=== PATIENT | male | born 1985 | race Caucasian/White ===

== ENCOUNTER 2018-11-14 19:07 | Emergency (ER) | payer OTHER ==
[2018-11-14] MEDS ORDERED: Sodium Chloride 0.9% 1,000 ML IV SCH (19:30)
[2018-11-14] MEDS ORDERED: Iopamidol 755 Mg/ML 200 ML Bottle IV ONE ×3 (19:31→20:00)
--- NOTE | 2018-11-14 19:54 | EDM.PDOC ---
ED HPI GENERAL MEDICAL PROBLEM - General Chief Complaint: Chest Pain Stated Complaint: RIB INJURY Time Seen by Provider: 11/14/18 19:16 Source of Information: Reports: Patient, Other (His boss) History Limitations: Reports: No Limitations - History of Present Illness INITIAL COMMENTS - FREE TEXT/NARRATIVE: This is a 33-year-old male. 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 Zamorano on the pipe and struck him in his left ribs. He complains of severe rib pain the pain that radiates into his anterior chest and into his back around those ribs. He also complains of some mild left flank pain. He's had no nausea and vomiting. It hurts to breathe. He thinks the breath was knocked out of him when he got hit and he thinks he might of had some loss of consciousness for a few seconds but he did not hit his head. He denies any extremity injury. Upon arrival to the ER his pulse ox was 98% on room air. Left Chest Pain Score (Numeric/FACES): 7 - Related Data Allergies Allergy/AdvReac Type Severity Reaction Status Date / Time No Known Allergies Allergy Verified 11/14/18 19:19 Home Meds: Home Meds Labetalol [Normodyne] 100 mg PO DAILY 11/14/18 [History] Past Medical History Cardiovascular History: Reports: Hypertension Social & Family History - Tobacco Use Smoking Status *Q: Never Smoker - Caffeine Use Caffeine Use: Reports: None - Recreational Drug Use Recreational Drug Use: No ED ROS GENERAL - Review of Systems Review Of Systems: See Below Constitutional: Denies: Fever, Chills HEENT: Reports: No Symptoms Respiratory: Reports: Shortness of Breath, Other (Left rib pain) Cardiovascular: Reports: Other (Anterior chest pain related to his ribs) Endocrine: Reports: No Symptoms GI/Abdominal: Reports: Abdominal Pain, Other (Left upper quadrant) : Reports: No Symptoms Musculoskeletal: Reports: Back Pain, Other (He denies any leg pain or arm pain, the back pain seems to be related to his left ribs with the pain radiating around to his back) Skin: Reports: Other (Bruising over the left ribs) Psychiatric: Reports: No Symptoms Hematologic/Lymphatic: Reports: No Symptoms ED EXAM, GENERAL - Physical Exam Exam: See Below Exam Limited By: No Limitations General Appearance: Alert, WD/WN, Mild Distress Eye Exam: Bilateral Eye: Normal Inspection Ears: Normal External Exam Nose: Normal Inspection Throat/Mouth: Normal Lips, Normal Voice, No Airway Compromise Head: Atraumatic, Normocephalic Neck: Supple, Other (He denies any cervical tenderness) Respiratory/Chest: Other (He has equal breath sounds on the left and the right, there is bruising over the ribs 7, 8, 9 and 10 laterally, with marked tenderness on palpation so I cannot determine crepitus. Breathing deep he splints on the left side, breathing deep seems to cause pain into his left anterior chest and left back) Cardiovascular: Regular Rate, Rhythm, No Murmur GI/Abdominal: Other (Bowel sounds are decreased, he does have left flank tenderness on palpation of the left upper quadrant is not significantly tender, the right upper quadrant and lower abdomen is nontender on palpation, there is no bruising in the left upper abdomen but just in the ribs and the left flank area, bowel sounds are decreased) Back Exam: Other (He seems to move his back fairly well until he breathes deep and immediate sharp pain in his lower thoracic area) Extremities: Normal Inspection, Normal Range of Motion Neurological: Alert, Oriented Psychiatric: Anxious Skin Exam: Warm, Dry Course - Vital Signs Last Recorded V/S: Last Vital Signs Temp 97.6 F 11/14/18 19:16 Pulse 89 11/14/18 19:16 Resp 16 11/14/18 19:16 BP 142/96 H 11/14/18 19:16 Pulse Ox 98 11/14/18 19:16 - Orders/Labs/Meds Orders: Active Orders 24 hr Category Date Time Status Ribs 2V w Chest Lt [CR] Stat Exams 11/14/18 19:24 Taken Iopamidol [Isovue-370 (76%)] Med 11/14/18 19:31 Once 100 ml IV ONETIME ONE Iopamidol [Isovue-370 (76%)] Med 11/14/18 19:52 Once 100 ml IV ONETIME ONE Iopamidol [Isovue-370 (76%)] Med 11/14/18 20:00 Once 200 ml IV ONETIME ONE Sodium Chloride 0.9% [Normal Saline] 1,000 ml Med 11/14/18 19:30 Active IV ASDIRECTED Sodium Chloride 0.9% [Saline Flush] Med 11/14/18 19:31 Active 10 ml FLUSH ONETIME PRN Medication Orders Sodium Chloride (Normal Saline) 1,000 mls @ 500 mls/hr IV ASDIRECTED SAW Last Admin: 11/14/18 19:56 Dose: 500 mls/hr Iopamidol (Isovue-370 (76%)) 100 ml IV ONETIME ONE Stop: 11/14/18 19:32 Iopamidol (Isovue-370 (76%)) 100 ml IV ONETIME ONE Stop: 11/14/18 19:53 Iopamidol (Isovue-370 (76%)) 200 ml IV ONETIME ONE Stop: 11/14/18 20:01 Sodium Chloride (Saline Flush) 10 ml FLUSH ONETIME PRN PRN Reason: IV FLUSH Last Admin: 11/14/18 20:05 Dose: 10 ml Admin: 11/14/18 19:56 Dose: 10 ml Labs: Laboratory Tests 11/14/18 Range/Units 20:04 WBC 8.73 (4.23-9.07) K/mm3 RBC 4.81 (4.63-6.08) M/mm3 Hgb 14.0 (13.7-17.5) gm/L Hct 41.9 (40.1-51.0) % MCV 87.1 (79.0-92.2) fl MCH 29.1 (25.7-32.2) pg MCHC 33.4 (32.2-35.5) g/dl RDW Std Deviation 40.9 (35.1-43.9) fL Plt Count 245 (163-337) K/mm3 MPV 10.9 (9.4-12.3) fl Neut % (Auto) 61.1 (34.0-67.9) % Lymph % (Auto) 27.3 (21.8-53.1) % [place] % (Auto) 9.5 (5.3-12.2) % Eos % (Auto) 1.1 (0.8-7.0) Baso % (Auto) 0.2 (0.1-1.2) % Neut # (Auto) 5.33 (1.78-5.38) K/mm3 Lymph # (Auto) 2.38 (1.32-3.57) K/mm3 [place] # (Auto) 0.83 H (0.30-0.82) K/mm3 Eos # (Auto) 0.10 (0.04-0.54) K/mm3 Baso # (Auto) 0.02 (0.01-0.08) K/mm3 Meds: Medications Generic Name Dose Route Start Last Admin Trade Name Freq PRN Reason Stop Dose Admin Sodium Chloride 1,000 mls @ 500 mls/hr 11/14/18 19:30 11/14/18 19:56 Normal Saline IV 500 mls/hr ASDIRECTED SAW Administration Iopamidol 100 ml 11/14/18 19:31 Isovue-370 (76%) IV 11/14/18 19:32 ONETIME ONE Iopamidol 100 ml 11/14/18 19:52 Isovue-370 (76%) IV 11/14/18 19:53 ONETIME ONE Iopamidol 200 ml 11/14/18 20:00 Isovue-370 (76%) IV 11/14/18 20:01 ONETIME ONE Sodium Chloride 10 ml 11/14/18 19:31 11/14/18 20:05 Saline Flush FLUSH 10 ml ONETIME PRN Administration IV FLUSH Discontinued Medications Generic Name Dose Route Start Last Admin Trade Name Freq PRN Reason Stop Dose Admin Iopamidol 100 ml 11/14/18 20:05 11/14/18 20:05 Isovue-370 (76%) IVPUSH 11/14/18 20:06 100 ml ONETIME ONE Administration - Radiology Interpretation Free Text/Narrative:: CT scan of the abdomen does not show any acute findings and there is no splenic injury. X-rays of the left ribs there is one view that suggestive might be a ninth rib fracture but I don't see it on any other view. - Re-Assessments/Exams Free Text/Narrative Re-Assessment/Exam: 11/14/18 20:58 I spoke to the patient and his boss regarding the x-ray results I'm not certain whether he has a ninth rib fracture will not. Certainly he has a rib sprain and he is having some mild muscle reaction to that. He has been taking over-the- counter Advil and using Biofreeze seems to help. I did not realize but his injury occurred on Friday but due to his pain that radiates into his chest from his ribs is why he came to the ER tonight. I suggested to his boss and to himself that he needs to follow up with the company designated provider. Departure - Departure Time of Disposition: 21:00 Disposition: Home, Self-Care 01 Condition: Fair Clinical Impression: Muscle spasm, Rib pain on left side Contusion of rib on left side Qualifiers: Encounter type: initial encounter Qualified Code(s): S20.212A - Contusion of left front wall of thorax, initial encounter - Discharge Information *PRESCRIPTION DRUG MONITORING PROGRAM REVIEWED*: Not Applicable *COPY OF PRESCRIPTION DRUG MONITORING REPORT IN PATIENT SLIM: Not Applicable Instructions: Blunt Chest Trauma Referrals: PCP,None [Primary Care Provider] - Forms: ED Department Discharge Additional Instructions: Continue with the Advil and Tylenol for the pain, you may use Biofreeze to help with the pain as well, gentle activity at work and home, expect this to take about 6-8 weeks to heal completely, if there is any difficulty in breathing or your symptoms seemed to be worsening follow-up with your [employer] designated medical provider or return to the ER - My Orders Last 24 Hours: My Active Orders 11/14/18 19:24 Ribs 2V w Chest Lt [CR] Stat 11/14/18 19:30 Sodium Chloride 0.9% [Normal Saline] 1,000 ml IV ASDIRECTED 11/14/18 19:31 Iopamidol [Isovue-370 (76%)] 100 ml IV ONETIME ONE Sodium Chloride 0.9% [Saline Flush] 10 ml FLUSH ONETIME PRN 11/14/18 19:52 Iopamidol [Isovue-370 (76%)] 100 ml IV ONETIME ONE 11/14/18 20:00 Iopamidol [Isovue-370 (76%)] 200 ml IV ONETIME ONE - Assessment/Plan Last 24 Hours: My Active Orders 11/14/18 19:24 Ribs 2V w Chest Lt [CR] Stat 11/14/18 19:30 Sodium Chloride 0.9% [Normal Saline] 1,000 ml IV ASDIRECTED 11/14/18 19:31 Iopamidol [Isovue-370 (76%)] 100 ml IV ONETIME ONE Sodium Chloride 0.9% [Saline Flush] 10 ml FLUSH ONETIME PRN 11/14/18 19:52 Iopamidol [Isovue-370 (76%)] 100 ml IV ONETIME ONE 11/14/18 20:00 Iopamidol [Isovue-370 (76%)] 200 ml IV ONETIME ONE
[2018-11-14] MEDS: Sodium Chloride 0.9% 10 ML Syringe FLUSH PRN ×2 (19:56→20:05)
[2018-11-14] MEDS ORDERED: Iopamidol 755 Mg/ML 100 ML Bottle IVPUSH ONE (20:05)
--- NOTE | 2018-11-14 20:05 | CT ---
CT abdomen Technique: Multiple axial sections were obtained from above the dome of the diaphragm inferiorly to the iliac crests. Intravenous contrast was utilized. No oral contrast has been given. Comparison: No prior abdominal imaging is available. Findings: Spleen appears normal in size and shows no abnormal densities. Liver appears within normal limits. Small portion of the visualized lung bases show nothing acute. Adrenal glands show no nodule. Pancreas is within normal limits. Gallbladder contains no calcified gallstones. Kidneys show symmetric contrast enhancement without hydronephrosis. Small cyst is noted within the lower right kidney measuring approximately 7.5 mm. Aorta shows no aneurysm. No retroperitoneal adenopathy or mesenteric abnormalities are seen. Small fat-containing umbilical hernia is incidentally noted. Bone window settings were reviewed which appear within normal limits for the patient's age. Impression: 1. Incidental findings. Nothing acute is seen on CT study of the abdomen. Diagnostic code #2
--- NOTE | 2018-11-15 10:29 | CR ---
Chest and left ribs: Frontal view of the chest was as well as three views of the left ribs. Comparison: No prior chest or rib study. Slight atelectasis is seen within the left base. Heart size and mediastinum are normal. Lungs show no acute parenchymal change. Very slight cortical bump is noted within the anterior fifth rib possibly due to nondisplaced fracture. No additional left sided rib abnormality is appreciated. Impression: 1. Left basilar atelectasis. 2. Questionable nondisplaced fracture within the anterior left fifth rib. Diagnostic code #3
== END 2018-11-14 21:10 | disposition home or self-care (01) ==
LOC: JD.ED 19:07
DX: S20.212A Contusion of left front wall of thorax, initial encounter (principal); I10 Essential (primary) hypertension; Z79.899 Other long term (current) drug therapy; W22.8XXA Striking against or struck by other objects, initial encounter
CPT/HCPCS: 36415; 71101; 74160; 85025; 96360; 99284; J7040; Q9967